=== PATIENT | female | born 1990 | race Caucasian/White ===

== ENCOUNTER 2020-04-23 11:40 | Outpatient (REF) | payer OTHER, SELFPAY ==
[2020-04-26 15:17] LABS: TS Negative Control Passed; TS Panel A 1; TS Panel B 1; TS Positive Control Passed; TSpotTB Negative (SeeBelow)
== END 2020-04-23 11:41 | disposition home or self-care (01) ==
LOC: HO.LAB 11:40
PROVIDERS: Visit Provider Dermatology
DX: L63.8 Other alopecia areata (principal); L73.2 Hidradenitis suppurativa; L21.8 Other seborrheic dermatitis
CPT/HCPCS: 36415; 86481